=== PATIENT | male | born 1990 | race African-American/Black ===

== ENCOUNTER 2019-02-05 15:33 | Emergency (ER) | payer SELFPAY ==
[~2019-02-05] VITALS: Ht 185.4 cm; Wt 109.0 kg
[2019-02-05 15:45] VITALS: BP 170/102
== END 2019-02-05 20:20 | disposition left against medical advice (07) ==
LOC: ER 15:33
DX: J45.901 Unspecified asthma with (acute) exacerbation (principal); Z53.21 Procedure and treatment not carried out due to patient leaving prior to being seen by health care provider